=== PATIENT | female | born 1990 | race Caucasian/White ===

== ENCOUNTER 2018-11-12 20:05 | Emergency (ER) | payer BC, OTHER ==
[~2018-11-12] VITALS: Ht 160 cm; Wt 61.2 kg
[2018-11-12 20:08] VITALS: BP 116/61
== END 2018-11-12 21:00 | disposition home or self-care (01) ==
LOC: ER 20:09
DX: O9A.212 Injury, poisoning and certain other consequences of external causes complicating pregnancy, second trimester (principal); S90.862A Insect bite (nonvenomous), left foot, initial encounter; S90.861A Insect bite (nonvenomous), right foot, initial encounter; Z3A.17 17 weeks gestation of pregnancy; W57.XXXA Bitten or stung by nonvenomous insect and other nonvenomous arthropods, initial encounter; Y93.89 Activity, other specified; Y92.89 Other specified places as the place of occurrence of the external cause; Y99.8 Other external cause status